=== PATIENT | male | born 1985 | race Two or more races ===

== ENCOUNTER → 2019-05-02 | Outpatient (CLI) | payer OTHER ==
--- NOTE | 2019-05-02 12:44 | RAD ---
Cervical spine, 5 views, 05/02/2019: HISTORY: Neck pain The cervical vertebral heights and intervertebral disc spaces are well-maintained. There are mild scattered marginal spurs. There is only minimal foraminal narrowing at C4-5 on the right and C3-4 on the left. No fracture or dislocation is identified. The prevertebral soft tissues are unremarkable. IMPRESSION: 1. Mild scattered degenerative changes. 2. No acute abnormality is detected. Electronically signed by: Alphonso Rivera MD (05/02/2019 12:41 PM) [facility]
--- NOTE | 2019-05-02 12:47 | RAD ---
Right shoulder, 3 views, 05/02/2019: HISTORY: Shoulder pain No fracture or dislocation is identified. There is mild degenerative change at the AC joint. The periarticular soft tissues are unremarkable. IMPRESSION: No acute bony abnormality is detected. Electronically signed by: Alphonso Rivera MD (05/02/2019 12:44 PM) [facility]
== END | disposition home or self-care (01) ==
LOC: RAD 10:33
PROVIDERS: ATTEND Psychiatry & Neurology Neurology with Special Qualifications in Child Neurology
DX: M47.812 Spondylosis without myelopathy or radiculopathy, cervical region (principal); M48.02 Spinal stenosis, cervical region; M19.011 Primary osteoarthritis, right shoulder
CPT/HCPCS: 72050; 73030